=== PATIENT | female | born 1995 | race African-American/Black ===

== ENCOUNTER 2019-02-21 12:00 | Emergency (ER) | payer OTHER, MEDICAID ==
[~2019-02-21] VITALS: Ht 154.9 cm; Wt 77.0 kg
[2019-02-21] MEDS ORDERED: PREDNISONE 20MG TABLET PO ONE (13:30)
[2019-02-21] MEDS ORDERED: FAMOTIDINE 20MG TABLET PO ONE (13:30)
[2019-02-21] MEDS ORDERED: DIPHENHYDRAMINE 50MG CAPSULE PO ONE (13:30)
[2019-02-21 14:57] VITALS: BP 128/82
== END 2019-02-21 14:59 | disposition home or self-care (01) ==
LOC: ER 12:40
DX: L50.0 Allergic urticaria (principal)
CPT/HCPCS: 81025; 99284; J7512; Q0163

== ENCOUNTER 2019-05-03 00:09 | Emergency (ER) | payer OTHER, MEDICAID ==
[~2019-05-03] VITALS: Ht 154.9 cm; Wt 78.0 kg
[2019-05-03 00:27] VITALS: BP 118/78
[2019-05-03] MEDS ORDERED: DIPHENHYDRAMINE 25MG CAPSULE PO ONE (01:15)
== END 2019-05-03 01:20 | disposition home or self-care (01) ==
LOC: ER 00:09
DX: T78.40XA Allergy, unspecified, initial encounter (principal); X58.XXXA Exposure to other specified factors, initial encounter
CPT/HCPCS: 99282; Q0163

== ENCOUNTER 2019-10-15 07:44 | Emergency (ER) | payer MEDICAID, OTHER ==
[~2019-10-15] VITALS: Ht 177.8 cm; Wt 100.0 kg
[2019-10-15] MEDS ORDERED: KETOROLAC 30MG/ML VIAL IV STA (08:18)
[2019-10-15 08:47] LABS: BASOPHILS % 0.4 % (0.0-2.0); CHLORIDE 106 mEq/L (98-107); EOSINOPHILS % 1.7 % (0.0-5.0); HEMATOCRIT. 39.3 % (36.0-48.0); LYMPHOCYTES % 22.7 % (20.0-50.0); MEAN CORPUSCULAR HEMOGLOBIN 28.1 pg (28.0-32.0); MEAN CORPUSCULAR VOLUME 84.8 fL (81.0-99.0); MEAN PLATELET VOLUME 8.1 fl (7.4-10.4); MONOCYTES % 6.5 % (2.0-8.0); NEUTROPHILS % 68.7 % (40.0-76.0); PLATELET 259 x1000/uL (130-400); PROTHROMBIN TIME 10.4 sec (9.6-11.0); RED BLOOD CELL COUNT 4.64 mill/uL (4.2-5.4); RED CELL DISTRIBUTION WIDTH 14.5 % (11.6-14.6)
[2019-10-15 09:02] LABS: HCG SCREEN NEGATIVE
[2019-10-15 09:26] LABS: CLARITY URINE CLEAR (CLEAR); COLOR URINE YELLOW (YELLOW); KETONES URINE NEGATIVE (NEGATIVE); LEUKOCYTE ESTERASE URINE NEGATIVE (NEGATIVE); NITRITE URINE NEGATIVE (NEGATIVE); OCCULT BLOOD URINE NEGATIVE (NEGATIVE); PROTEIN URINE NEGATIVE (NEGATIVE); SPECIFIC GRAVITY URINE 1.022 (1.005-1.030); UROBILINOGEN URINE 0.2 E.U./dL (0.2-1.0)
[2019-10-15 10:51] VITALS: BP 120/80
== END 2019-10-15 11:00 | disposition home or self-care (01) ==
LOC: ER 07:44
DX: N83.201 Unspecified ovarian cyst, right side (principal)
CPT/HCPCS: 36415; 76830; 76856; 80053; 81003; 81025; 83690; 84703; 85025; 85610; 96374; 99284; J1885

== ENCOUNTER 2025-04-22 18:28 | Emergency (ER) | payer MEDICAID ==
[~2025-04-22] VITALS: Ht 154.9 cm; Wt 83.0 kg
[2025-04-22 18:37] VITALS: O2SAT 100
[2025-04-22] MEDS: KETOROLAC 30MG/ML VIAL IM ONE (20:29)
[2025-04-22] MEDS: HYDROCODONE/ACETAMINOPHEN 5/325MG TABLET PO ONE (20:30)
[2025-04-22] MEDS ORDERED: IBUP-1455 MT (21:42)
[2025-04-22] MEDS ORDERED: HYDR-4001 MT (21:42)
[2025-04-22] MEDS ORDERED: OFLO5DRO4 LEFT EAR (21:42)
[2025-04-22 22:10] VITALS: BP 122/90; PULSE 75; RESP 14; TEMP 36.7; O2SAT 100
== END 2025-04-22 22:15 | disposition home or self-care (01) ==
LOC: ER 18:28
DX: S09.22XA Traumatic rupture of left ear drum, initial encounter (principal); S09.90XA Unspecified injury of head, initial encounter; Z79.899 Other long term (current) drug therapy; Z91.013 Allergy to seafood; Z91.018 Allergy to other foods; X58.XXXA Exposure to other specified factors, initial encounter; Y93.89 Activity, other specified; Y92.89 Other specified places as the place of occurrence of the external cause; Y99.8 Other external cause status
CPT/HCPCS: 99285; 70450; 81025; 96372; J1885

== ENCOUNTER 2025-04-25 03:55 | Emergency (ER) | payer MEDICAID ==
[~2025-04-25] VITALS: Ht 154.9 cm; Wt 83.0 kg
[~2025-04-25 03:55] MED LIST: HYDR-4001 MT; IBUP-1455 MT; OFLO5DRO4 LEFT EAR
[2025-04-25 03:59] VITALS: O2SAT 100
[2025-04-25 04:03] VITALS: BP 144/90; PULSE 72; RESP 18; TEMP 36.9; O2SAT 100
[2025-04-25] MEDS: DIPHENHYDRAMINE 25MG CAPSULE PO ONE (04:38)
[2025-04-25] MEDS: DEXAMETHASONE 10 MG/ML VIAL PO ONE (04:38)
[2025-04-25] MEDS ORDERED: DIPH25CA83 MT (05:24)
[2025-04-25] MEDS ORDERED: CIPHCO EACH EAR (05:24)
[2025-04-25] MEDS: KETOROLAC 15MG/ML VIAL IM ONE (05:36)
== END 2025-04-25 05:57 | disposition home or self-care (01) ==
LOC: ER 03:55
DX: T78.40XA Allergy, unspecified, initial encounter (principal); J02.9 Acute pharyngitis, unspecified; Z79.899 Other long term (current) drug therapy; Z91.018 Allergy to other foods; Z91.013 Allergy to seafood; Z88.0 Allergy status to penicillin; Z88.1 Allergy status to other antibiotic agents; Z88.8 Allergy status to other drugs, medicaments and biological substances; X58.XXXA Exposure to other specified factors, initial encounter; Y93.89 Activity, other specified; Y92.89 Other specified places as the place of occurrence of the external cause; Y99.8 Other external cause status
CPT/HCPCS: 99283; 96372; J1885; Q0163; J1100